=== PATIENT | female | born 1990 | race African-American/Black ===

== ENCOUNTER 2016-06-03 08:52 | Emergency (ER) | payer BC ==
[~2016-06-03] VITALS: Ht 152.4 cm; Wt 83.9 kg
[2016-06-03 09:00] VITALS: BP 155/78
--- NOTE | 2016-06-03 09:37 | PHYS DOC ---
Past Medical History Past Medical History: No Pertinent History Past Surgical History: No Surgical History Alcohol Use: Occasionally Drug Use: None Adult General Chief Complaint Chief Complaint: SKIN PROBLEM HPI HPI Patient is a 25 year old female who presents with a rash that began on her hands spread to the forearm she states the rash, begun a week ago. Patient works at [employer] as an [employer] and is afraid she could have scabies. She states her daughter who is 3 months old got a similar rash from patient. Review of Systems Review of Systems Constitutional: Denies fever or chills [] Eyes: Denies change in visual acuity, redness, or eye pain [] HENT: Denies nasal congestion or sore throat [] Musculoskeletal: Denies back pain or joint pain [] Integument: rash Endocrine: Denies polyuria or polydipsia [] Allergies Allergies Allergies Coded Allergies Type Severity Reaction Last Updated Verified No Known Drug Allergies 06/29/13 No Physical Exam Physical Exam Constitutional: Well developed, well nourished, no acute distress, non-toxic appearance. [] HENT: Normocephalic, atraumatic, bilateral external ears normal, oropharynx moist, no oral exudates, nose normal. [] Skin: Patient has mild amount of erythematous papular rash on bilateral forearms , small amount of similar rash on the chest. Back: No tenderness, no CVA tenderness. [] Extremities: No tenderness, no cyanosis, no clubbing, ROM intact, no edema. [] Neurologic: Alert and oriented X 3, normal motor function, normal sensory function, no focal deficits noted. [] Psychologic: Affect normal, judgement normal, mood normal. [] Current Patient Data Vital Signs Vital Signs Date Time Temp Pulse Resp B/P Pulse Ox O2 Delivery O2 Flow Rate FiO2 06/03/16 09:00 98.6 94 18 155/78 97 Room Air 98.6 EKG EKG [] Radiology/Procedures Radiology/Procedures [] Course & Med Decision Making Course & Med Decision Making Pertinent Labs and Imaging studies reviewed. (See chart for details) Patient has a rash suspicious for scabies. Discharged with permethrin. Discharged with prednisone and Benadryl. We talked about the importance of hygiene. Follow-up with house cleaner in 2 weeks if symptoms persist. Dragon Disclaimer Dragon Disclaimer This electronic medical record was generated, in whole or in part, using a voice recognition dictation system. Departure Departure Impression: Primary Impression: Scabies Disposition: 01 HOME, SELF-CARE Condition: STABLE Referrals: HARSHA DE LA FUENTE MD (PCP) MORIS MARTINEZ MD Follow-up with your own doctor or the provided house cleaner in 2 weeks Patient Instructions: Scabies Additional Instructions: You were seen for a rash suspicious for scabies. Please maintain very good hygiene at home. Take the prescribed medicines as ordered. Follow-up with the provided appraisal coordinator or your own doctor in 2 weeks. Scripts Benzonatate (Tessalon Perle)100 Mg Capsule1 Cap PO TID #30 CAP Prov:JESSICA NEELY APRN 06/03/16 Prednisone 50 Mg Tablet1 Tab PO DAILY #5 TAB Prov:JESSICA NEELY APRN 06/03/16 Permethrin 60 Gm Cream..g.1 Ignacio TP ONCE #60 GM Ref 1 Prov:JESSICA NEELY APRN 06/03/16 JESSICA NEELY APRN Jun 03, 2016 09:37
[2016-06-03] MEDS ORDERED: BENZ100C PO (09:46)
[2016-06-03] MEDS ORDERED: PERM60CR2 TP (09:46)
[2016-06-03] MEDS ORDERED: PRED50TA PO (09:46)
== END 2016-06-03 10:00 | disposition home or self-care (01) ==
LOC: ER 08:52
DX: B86 Scabies (principal)
CPT/HCPCS: 99283

== ENCOUNTER 2017-04-29 18:41 | Emergency (ER) | payer BC | END 2017-04-29 20:00 | disposition home or self-care (01) | LOC: ER 20:00 | DX: K12.0 Recurrent oral aphthae (principal); G35 Multiple sclerosis | CPT/HCPCS: 99281 ==